=== PATIENT | female | born 1970 | race Caucasian/White ===

== ENCOUNTER 2019-11-06 22:53 | Emergency (ER) | payer OTHER ==
[~2019-11-06] VITALS: Ht 165.1 cm; Wt 108.9 kg
[~2019-11-06 22:53] MED LIST: CEFDINIR300 MG; CEFDINIR300 MG PO; CIPRO250 M2 PO; CIPRO500 MG PO; EXCEDRIN CAPLE1 EACH PO; FLEXERIL PO; FLOMAX0.4 MG PO; GLUMETZA500 M1 PO; KEFLEX500 MG PO; METFORMIN HCL500 MG PO; MULTI-VITAMIN1 EAC4 PO; NAPROSYN500 MG PO; PERCOCET 5-3251 EACH PO; PERCOCET PO; PHENERGAN 25 MG25 M1 PO; PREDNISONE 10 M10 MG PO; ZYRTEC10 M5 PO
[2019-11-06] MEDS ORDERED: TRULICITY0.75 MG/0. SUBQ (23:20)
[2019-11-06] MEDS ORDERED: ZPAK PO (23:21)
[2019-11-06 23:49] LABS: ABSOLUTE LYMPHOCYTES 0.9 thou/uL (0.8-5.3); ABSOLUTE MONOCYTES 0.4 thou/uL (0.0-1.2); ABSOLUTE NEUTROPHILS 2.6 thou/uL (1.6-8.1); BASOPHILS 0.3 %; EOSINOPHILS 0.1 %; HEMATOCRIT 41.2 % (37.0-47.0); HEMOGLOBIN 14.6 gm/dL (12.0-15.0); LYMPHOCYTES 23.6 %; MCH 29.7 pg (26.0-34.0); MCHC 35.4 g/dL (28.0-37.0); MCV 83.7 fL (80.0-100.0); MONOCYTES 9.3 %; MPV 8.9 fl. (7.2-11.1); NUCLEATED RBCS 0 /100WBC; PLATELET COUNT* 132 thou/uL (150-400); POLYS 66.7 %; RBC 4.92 mil/uL (4.20-5.00); RDW-CV 13.4 % (10.5-14.5); WBC 3.9 thou/uL (4.0-11.0)
[2019-11-06 23:51] LABS: CALCIUM 8.2 mg/dL (8.5-10.1); CREATININE 1.1 mg/dL (0.6-1.3); POTASSIUM 3.1 mmol/L (3.5-5.1)
[2019-11-06 23:59] LABS: ALBUMIN 3.2 g/dL (3.4-5.0); TOTAL BILIRUBIN 0.6 mg/dL (<0.1-1.0); TOTAL PROTEIN 6.9 g/dL (6.4-8.2)
[2019-11-07 00:56] LABS: URINE BILIRUBIN NEGATIVE (Negative); URINE BLOOD NEGATIVE (Negative); URINE CLARITY CLEAR; URINE COLOR YELLOW; URINE GLUCOSE-RANDOM NEGATIVE (Negative); URINE KETONES 2+ (Negative); URINE LEUKOCYTES-REFLEX NEGATIVE (Negative); URINE NITRITE-REFLEX NEGATIVE (Negative); URINE PROTEIN TRACE (Negative); URINE SPECIFIC GRAVITY 1.025 (1.005-1.030); URINE UROBILINOGEN 0.2 E.U./dl (0.2-1.0)
[2019-11-07] MEDS ORDERED: ZOFRAN ODT4 MG PO (01:33)
[2019-11-07 01:45] VITALS: BP 135/72
--- NOTE | 2019-11-07 10:12 | EKG ---
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 : 1970 Requested By: Poly Israel Order Number: [id number] Jeanne MD: Nasim Calderon Measurements Intervals Juliette Rate: 121 P: 66 WA: 165 QRS: -4 QRSD: 84 T: 20 QT: 318 QTc: 452 Interpretive Statements Sinus tachycardia Anterior infarct, old Baseline wander in lead(s) II,III,aVF,V6 No previous ECG available for comparison Electronically Signed On 11-07-2019 10:12:19 CDT by Nasim Calderon [email or web address] <ELECTRONICALLY SIGNED> By: Nasim Calderon MD, FAC 11/07/19 1012 02 Nasim Calderon MD, [facility] /EPI
== END 2019-11-07 01:46 | disposition home or self-care (01) ==
LOC: M.ERS 22:53
PROVIDERS: Personal Emergency Response Attendant
DX: E86.0 Dehydration (principal); Z88.5 Allergy status to narcotic agent; Z90.710 Acquired absence of both cervix and uterus; Z98.51 Tubal ligation status; Z90.49 Acquired absence of other specified parts of digestive tract